=== PATIENT | female | born 1980 | race Caucasian/White ===

== ENCOUNTER 2017-05-08 08:59 | Emergency (ER) | payer BC ==
[~2017-05-08] VITALS: Ht 142.2 cm; Wt 45.4 kg
[2017-05-08 09:57] LABS: URINE SOURCE CLEAN CATCH
[2017-05-08 10:02] LABS: URINE APPEARANCE CLEAR; URINE BILIRUBIN NEG (NEG); URINE BLOOD NEG (NEG); URINE COLOR YELLOW; URINE GLUCOSE NORM (NORM); URINE KETONE NEG (NEG); URINE LEUKOCYTE ESTERASE NEG (NEG); URINE NITRATE NEG (NEG); URINE PROTEIN NEG (NEG); URINE SPECIFIC GRAVITY 1.015 (1.003-1.035); URINE UROBILINOGEN NORM (NORM)
[2017-05-08 10:07] LABS: CULTURE INDICATED? NO
== END 2017-05-08 10:31 | disposition home or self-care (01) ==
LOC: CED 08:59
PROVIDERS: Nurse Practitioner
DX: N93.8 Other specified abnormal uterine and vaginal bleeding (principal); N64.4 Mastodynia
CPT/HCPCS: 81003; 84703; 99284